=== PATIENT | female | born 1980 | race Two or more races ===

== ENCOUNTER 2024-07-24 19:26 | Inpatient (IN) | payer MEDICAID, SELFPAY ==
[2024-07-24] VITALS (48 sets, daily range): BP systolic 60–148; BP diastolic 49–107; PULSE 78–208; RESP 13–25; TEMP 36.2–36.4; O2SAT 94–100; BMI 28.3
--- NOTE | 2024-07-24 19:31 | EKG_ITS ---
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
--- NOTE | 2024-07-24 19:39 | XR_ITS ---
Examination: AP chest single view TECHNIQUE: AP portable upright chest single view Date and time: July 24, 2024 2030 hours INDICATIONS: Chest pain and shortness of breath beginning today. FINDINGS: Normal heart size. Lungs are clear. Osseous structures are intact. IMPRESSION: No active disease.
--- NOTE | 2024-07-24 19:41 | EDNOTE_ITS ---
ED Arrhythmia Palp. RME/HPI General Chief Complaint: Chest Pain Stated Complaint: CHEST PAIN X20 MINUTES, HR 198 AT HOME Time Seen by Provider: 07/24/24 20:08 Arrival date/time: 07/24/24 19:26 RME / HPI RME / HPI narrative: This section includes all my notes and documentations, including HPI, PE, and ED course. Rasta Duncan MD HPI: 43 y/o female with Hx of Hypercholesterolemia presents to ED c/o heart palpitati ons x approximately 40 minutes prior to arrival. She also reports chest tightness and dizziness. No other complaints. ROS: All negative except as documented in HPI. Physical Exam: General: Alert and oriented. Eyes: Conjunctivae and lids clear. EOMI. PERRL. ENT: No nasal congestion. Neck: Supple. No carotid bruit. No JVD. Heart: Tachycardia noted (~200 bpm). Lungs: No respiratory distress. Good air movement. No rhonchi, wheezing, rales. Legs: No clubbing, cyanosis, edema. Skin: Warm and dry. Neuro: Alert and oriented X 3. Cranial Nerves II-XII grossly intact. No stephane pheral motor deficits. I reviewed all diagnostic test results. My interpretation of the EKG is: SVT (208 bpm) with nonspecific ST-T changes. My interpretation of the chest x-ray is NAD. Blood tests and urine tests remarkable for WBC 16.3 and negative troponin/D- dimer/BNP. At this point, diagnoses include SVT. Treatment here included adenosine 6 mg followed by 12 mg and IV fluid. Significant improvement noted. I discussed the case with our Laminator Preforms and our hospitalist. About the presentation and exam and diagnostics and treatments here. And need of further care in the hospital. Made decision to admit the patient for further care. Rasta Duncan MD Related Data Previous Rx's ?Medication ?Instructions ?Recorded ibuprofen 600 mg tablet 600 mg PO Q6HR PRN PAIN #20 tabs 02/12/15 Allergies Allergy/AdvReac Type Severity Reaction Status Date / Time No Known Allergies Allergy Verified 07/24/24 19:28 Review of Systems Review of Systems Systems Reviewed: All systems reviewed, normal except as documented Past Medical History Past Medical History CARDIAC: Positive Hypercholesterolemia Social History SMOKING STATUS: Never smoker ED Exam Narrative Physical exam: Refer to HPI Course Course Course Narrative: CXR is ordered for determining the etiology of shortness of breath. Quality Measures none Orders Category Date Time Status EKG (ED ONLY) *Do not use* NOW Care 07/24/24 19:31 Completed Saline [Insert IV] NOW Care 07/24/24 19:39 Active EKG (ED Only) Stat Exams 07/24/24 19:31 Ordered XR chest 1V portable Stat Exams 07/24/24 19:39 Ordered BNP [B-Type Natriuretic Peptide] Stat Lab 07/24/24 19:39 Ordered Bilirubin,Direct Stat Lab 07/24/24 19:39 Ordered CBC Stat Lab 07/24/24 19:39 Ordered CMP [Comprehensive Metabolic Panel] Stat Lab 07/24/24 19:39 Ordered D-Dimer Stat Lab 07/24/24 19:39 Ordered Free T4 (Free Thyroxine) Stat Lab 07/24/24 19:39 Ordered HCG Qualitative,Urine Stat Lab 07/24/24 19:39 Ordered HCG,Qualitative Serum Stat Lab 07/24/24 19:39 Ordered Magnesium Stat Lab 07/24/24 19:39 Ordered TSH [Thyroid Stimulating Hormone] Stat Lab 07/24/24 19:39 Ordered Troponin I Stat Lab 07/24/24 19:39 Ordered UA, C/S IF [Urinalysis, C/S if Indicated] Stat Lab 07/24/24 19:39 Ordered Adenosine 6mg Inj [Adenocard Inj] Med 07/24/24 19:38 Discontinued 12 mg IVP X1 ONE Adenosine 6mg Inj [Adenocard Inj] Med 07/24/24 19:38 Discontinued 6 mg IVP X1 ONE Vital Signs Vital signs: Vital Signs Temperature 97.6 F 07/24/24 19:38 Pulse Rate 208 H 07/24/24 19:38 Respiratory Rate 22 H 07/24/24 19:38 Pulse Oximetry (%) 99 07/24/24 19:38 Oxygen Delivery Method Room Air 07/24/24 19:38 Arrhythmia/Palpitations MDM Narrative MDM Narrative:: Scribe Attestation: Kirsty Rojas am scribing for and in the presence of Dr. Duncan. Provider Notation: Although this document has been carefully reviewed, there may still be some phonetic and other typographical errors.? These errors are purely grammatical due to imperfections in the software program and should not be construed in any way to? compromise the substance of the patient's medical care during this visit. 43 y/o female with Hx of Hypercholesterolemia presents to ED c/o heart palpitations x approximately 40 minutes. No other complaints. Patient data External records reviewed:: [facility] previous records (No prior ED records available for review.) Clinical information provided by:: patient Social determinants that could affect healthcare access:: none Patient has the following chronic illnesses:: Hypercholesterolemia How is presenting disease/condition affected by chronic disease/condition?: exacerbated by Evaluation data The following diagnostics were reviewed and interpreted by me:: lab results, r adiology exam(s) and EKG tracing(s) (My interpretation of the EKG is: SVT (208 bpm) with nonspecific ST-T changes. Rasta Duncan MD) Lab and/or radiology exams considered but not ordered:: None Interpretation Summary: I reviewed all diagnostic test results. My interpretation of the EKG is: SVT (208 bpm) with nonspecific ST-T changes. My interpretation of the chest x-ray is NAD. Blood tests and urine tests remarkable for WBC 16.3 and negative troponin/D- dimer/BNP. Medications / Prescriptions Medications or Prescriptions considered but not ordered:: None Medication administrations:: Medication Administration History Discontinued Medications Adenosine (Adenosine Inj 3 Mg/Ml Vial) 6 mg IVP X1 ONE Stop: 07/24/24 19:39 Adenosine (Adenosine Inj 3 Mg/Ml Vial) 12 mg IVP X1 ONE Stop: 07/24/24 19:39 Consultations Consultation(s) initiated? (list below): Yes Consultation #1 (Physician, Specialty, Details): I discussed the case with our Laminator Preforms. About the presentation and exam and diagnostics and treatments here. And need of further care in the hospital. Will consult. Time: 22:08 Diagnosis Differential diagnosis arrhythmia/palpitations: palpitations, anxiety, sinus tachycardia, artial fibrillation, artial flutter, ventricular premature beats, supraventricular tachycardia, ventricular tachycardia and WPW Most likely diagnosis given after review of the tests above:: SVT Admission Indicated Admission indicated?: indicated Explain why admission is indicated or not indicated:: SVT Admission Request Was there a request for admission?: Yes Admission Attestation Admission request attestation: Discussed case with Hospitalist service regarding admission. Discussed patients ED course, exam findings, labs, and radiology results. The Hospitalist [agrees] to accept the patient for admission. Disposition Plan Disposition Plan: Admit Critical Care Time Critical Care Time Critical Care Time: Yes Total Critical Care Time (min.): 42 Attestation: Due to a high probability of clinically significant, life threatening deterioration, the patient required my highest level of preparedness to intervene emergently and I personally spent this critical care time directly and personally managing the patient. This critical care time included obtaining a history; examining the patient; ordering and review of studies; arranging urgent treatment with development of a management plan; evaluation of patient's response to treatment; frequent reassessment; and discussions with family and other providers. It was exclusive of separately billable procedures and treating other patients and teaching time. Rasta Duncan MD Discharge Plan Plan Patient Disposition: Admit Acute Care w/in Hospital Prescriptions/Referrals Prescriptions/Med Rec: No Action ibuprofen 600 MG tablet 600 mg PO Q6HR PRN (Reason: PAIN) Qty: 20 0RF Problem List Clinical Impression: SVT (supraventricular tachycardia) Patient/Caregiver Discharge Instructions Print Language: Citizen Of [place] Stand Alone Forms: Emilie Award Info., Patient Portal Info Letter
--- NOTE | 2024-07-24 19:45 | PC.NURSE ---
PT BIB TO ER WITH C/O SUDDEN ONSET OF PALPITATIONS AND DIZZINESS AND SOB 30 MIN PRIOR TO ARRIVAL. PER PT SHE HAD A COFFEE THIS MORNING FOLLOWED BY AND ENERGY DRINK ON AN EMPTY STOMACH. PT STATES SHE HAS HX OF TACHYCARDIA AND IS ON PROPANOLOL, AND STATES IS COMPLIANT WITH MEDICATIONS. PT PLACED ON GURNEY AND ZOLL PAD PLACED, CONSULTING SENIOR PRACTICE DIRECTOR PLACE, UNABLE TO OBTAIN BP AT THIS TIME. 18G STARTED TO LAC. AT BEDSIDE. PT EDUCATED ON PLAN OF CARE. PT A/OX 3 GCS 15.
[2024-07-24] MEDS: ADENOSINE INJ 3 MG/ML VIAL 6 MG IVP (19:48)
[2024-07-24] MEDS: ADENOSINE INJ 3 MG/ML VIAL 12 MG IVP (19:50)
[2024-07-24] MEDS: SODIUM CHLORIDE 0.9% 1000 ML 1,000 ML 999 ML IV (19:50)
[2024-07-24 20:20] LABS: Basophils # (Auto) 0.1 Thou/mm3 (0.0-0.2); Basophils % (Auto) 0 % (0-2.5); Eosinophils # (Auto) 0.2 Thou/mm3 (0.0-0.5); Eosinophils % (Auto) 1 % (0-10); Hematocrit 40.2 % (36.0-46.0); Hemoglobin 13.7 g/dL (12.0-16.0); Immature Granulocytes % (Auto) 0 % (0-0); Immature Granulocytes Auto 0.04 Thou/mm3 (0.00-0.00); Lymphocytes # (Auto) 6.4 Thou/mm3 (1.0-4.8); Lymphocytes % (Auto) 39 % (10-50); Mean Corpuscular HGB Conc 34.1 g/dl (31.0-37.0); Mean Corpuscular Hemoglobin 31.3 pg (25.0-35.0); Mean Corpuscular Volume 92 fL (80-100); Monocytes # (Auto) 1.1 Thou/mm3 (0.0-0.8); Monocytes % (Auto) 7 % (0-12); Neutrophils # (Auto) 8.5 Thou/mm3 (1.8-7.7); Neutrophils % (Auto) 52 % (37-80); Nucleated Red Blood Cell % 0 /100 WBC (0); Platelet Count 412 Thou/mm3 (140-440); RDW Standard Deviation 41.4 fL (36.4-46.3); Red Blood Count 4.38 Miln/mm3 (4.00-5.20); White Blood Count 16.3 Thou/mm3 (3.6-11.0)
[2024-07-24 20:48] LABS: Alanine Aminotransferase 16 U/L (10-49); Albumin, Serum 4.5 gm/dL (3.5-5.0); Albumin/Globulin Ratio 1.6 (1.2-2.2); Alkaline Phosphatase 78 U/L (46-116); Anion Gap 13 (7-16); Aspartate Amino Transferase 24 U/L (0-34); BUN/Creatinine Ratio 8 Ratio (12-20); Bilirubin,Direct 0.1 mg/dL (0.0-0.3); Bilirubin,Total 0.4 mg/dL (0.3-1.2); Blood Urea Nitrogen 11 mg/dL (9-23); Calcium 8.8 mg/dL (8.3-10.6); Calcium (Corrected) 8.8 mg/dL (8.5-10.1); Carbon Dioxide 22.7 mMol/L (20.0-31.0); Chloride 105 mMol/L (98-107); Creatinine (Component) 1.4 mg/dL (0.6-1.3); Estimated Creatinine Clearance 47.1 mL/min (>60); Free T4 (Free Thyroxine) 1.51 ng/dL (0.89-1.76); Globulin 2.8 gm/dL (2.3-3.5); Glucose 153 mg/dL (74-106); Magnesium 2.1 mg/dL (1.6-2.6); Osmolality,Calculated 283 (275-295); Potassium 4.1 mMol/L (3.4-5.1); Sodium 141 mMol/L (136-145); Thyroid Stimulating Hormone 4.29 uIU/mL (0.55-4.78); Total Protein 7.3 gm/dL (5.7-8.2); Troponin I < 0.002 ng/mL (0.0-0.045); eGFR 48 See Note
[2024-07-24 20:57] LABS: D-Dimer < 250 ng/mL (<600)
[2024-07-24 21:32] LABS: B-Type Natriuretic Peptide 36 pg/mL (0-100)
[2024-07-24 21:37] LABS: HCG,Qualitative Serum Negative
[2024-07-24 22:24] LABS: Collection Type, Urine Clean Catch
[2024-07-24 22:31] LABS: HCG Qualitative,Urine Negative
[2024-07-24 22:46] LABS: Bacteria,Urine Rare; Bilirubin,Urine Negative (Negative); Blood,Urine Trace (Negative); Clarity,Urine Clear (Clear/Hazy); Color,Urine Lt-Yellow (Lt Yel-Yel); Culture Indicated,Urine Not Indicated; Glucose, Urine Negative (Negative); Ketones,Urine 1+ (Negative); Leukocyte Esterase,Urine Negative (Negative); Nitrite,Urine Negative (Negative); PH,Urine 6.5 (5.0-7.0); Protein,Urine Negative (Neg - Trace); RBC,Urine 5 /hpf (0-3); Specific Gravity,Urine 1.014 (1.001-1.035); Squamous Epithelial Cell,Urine 3 /hpf (0-5); Urobilinogen,Urine Negative mg/dL (0.0-1.0); WBC,Urine 3 /hpf (0-5)
--- NOTE | 2024-07-24 23:02 | ESHP_ITS ---
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 The patient described a sudden onset of chest pressure, shortness of breath, and a sensation that her heart was racing. She called her , who brought her to the ED for further evaluation. The patient reports a history of anxiety and recent lifestyle factors that may have contributed to her symptoms, including excessive caffeine intake, consumption of energy drinks purchased in [place], poor sleep (only 3?4 hours per night), and elevated stress levels at work. She also reports a known history of tachycardia, for which she has previously been prescribed propranolol by her primary care physician. ED Course: Upon presentation, the patient was found to be hemodynamically unstable with a blood pressure of 60/50 and a heart rate of 208 . EKG was consistent with SVT. Two rounds of adenosine were administered, resulting in successful conversion to normal sinus rhythm. Following conversion, her blood pressure normalized to 128/89, and her symptoms improved significantly. Cardiology was consulted, and the patient was admitted for further inpatient cardiac monitoring and workup. Past medical history as above Past surgical history none Allergies NKDA Medication propranolol and valsartan Social history, denies smoking, drinking, recreational drug use, lives with her Review of Systems Review of Systems Systems Reviewed: All systems reviewed, normal except as documented Exam Vital Signs Temp Pulse Resp BP Pulse Ox O2 Del Method 97.6 F 200 H 19 98/49 L 98 Room Air 07/24/24 19:38 07/24/24 19:50 07/24/24 19:50 07/24/24 19:50 07/24/24 19:50 07/24/24 19:50 Narrative Exam GENERAL: no acute distress, AAO x3, well nourished. HEENT: Head AT/ NC. Mucous membranes moist. PERRL. NECK: Supple, no lymphadenopathy, no carotid bruits. CARDIOVASCULAR: RRR. Normal S1/S2, No m/r/g. No pitting edema of bilateral LEs. RESPIRATORY: CTAB. No wheezing, rhonchi, crackles. GASTROINTESTINAL: Abdomen soft, non tender no palpable masses. Bowel sounds present in all 4 quadrants. MUSCULOSKELETAL:? No cyanosis or edema, no visible joint swelling. NEUROLOGICAL: CN II-XII grossly intact. No focal deficits. Sensation intact, symmetric. PSYCHIATRIC: Awake and alert, not agitated, normal mood and affect. INTEGUMENTARY: No obvious rashes, no jaundice, normal turgor. Results: Labs 07/24/24 19:56 07/24/24 19:56 Labs: Short CBC 07/24/24 Range/Units 19:56 WBC 16.3 H (3.6-11.0) Thou/mm3 Hgb 13.7 (12.0-16.0) g/dL Hct 40.2 (36.0-46.0) % Plt Count 412 (140-440) Thou/mm3 BMP 07/24/24 19:56 Sodium 141 Potassium 4.1 Chloride 105 Carbon Dioxide 22.7 BUN 11 Creatinine 1.4 H Glucose 153 H Calcium 8.8 Cardiac Enzymes 07/24/24 Range/Units 19:56 Troponin I < 0.002 (0.0-0.045) ng/mL Liver Function 07/24/24 Range/Units 19:56 Total Bilirubin 0.4 (0.3-1.2) mg/dL Direct Bilirubin 0.1 (0.0-0.3) mg/dL AST 24 (0-34) U/L ALT 16 (10-49) U/L Alkaline Phosphatase 78 (46-116) U/L Albumin 4.5 (3.5-5.0) gm/dL Urine 07/24/24 Range/Units 21:34 Urine Color Lt-Yellow (Lt Yel-Yel) Urine Clarity Clear (Clear/Hazy) Urine pH 6.5 (5.0-7.0) Ur Specific [place] 1.014 (1.001-1.035) Urine Protein Negative (Neg - Trace) Urine Glucose (UA) Negative (Negative) Quality Measures Quality Measures none Medications Home Medications and Allergies Allergies Allergy/AdvReac Type Severity Reaction Status Date / Time No Known Allergies Allergy Verified 07/24/24 19:28 Visit Medications Discontinued Medications Adenosine (Adenosine Inj 3 Mg/Ml Vial) 6 mg IVP X1 ONE Stop: 07/24/24 19:39 Last Admin: 07/24/24 19:48 Dose: 6 mg Adenosine (Adenosine Inj 3 Mg/Ml Vial) 12 mg IVP X1 ONE Stop: 07/24/24 19:39 Last Admin: 07/24/24 19:50 Dose: 12 mg Sodium Chloride (Ns) 1,000 mls @ 999 mls/hr IV .Q1H1M ONE Stop: 07/24/24 20:52 Last Admin: 07/24/24 19:50 Dose: 999 mls/hr Assessment & Plan Plan 43-year-old female with past medical history of hypertension, tachycardia, anxiety was admitted for new onset SVT requiring inpatient cardiac monitoring and workup. #New onset SVT Patient presented with SVT, heart rate above 200, with initial hemodynamic instability Patient received 2 rounds of adenosine, successfully converted back to sinus rhythm - Admit to telemetry for further monitoring - Cardiology is on board for current management and to evaluate potential need for long-term rate control or electrophysiologic study - Rule out secondary contributors (e.g., stimulant use, anxiety, sleep deprivation) - Monitor electrolytes, keep magnesium above 2, potassium above 4 - Follow-up with echo to rule out any structural cardiac cause - Follow-up with TSH and free T4 #History of hypertension Home medication is valsartan Currently BP is well-controlled, - Monitor hemodynamics - If needed restart home meds Disposition: Telemetry DVT prophylaxis: Heparin GI prophylaxis: PPI Diet: N.p.o. Lines: PIV CODE STATUS:Full code Patient care was discussed with attending physician Dr. Coni Hinds MD PGY-2 Attending Provider Attestation/Addendum I have examined the patient, reviewed labs and imaging findings, discussed the case with the resident(s), and reviewed entered orders. I agree with the plan of care as outlined in this note, with these additional summaries/recommendations: After examination of the patient and review of the clinical data, I feel that this patient needs admission to the hospital for further treatment and evaluation. Patient is a 43-year-old female with a medical history of palpitations and dyslipidemia who presents to [facility] emergency department on 07/24/2024 with chief complaint of palpitations and chest tightness. Patient seen at bedside. She presented with supraventricular tachycardia with heart rates into the 200s. She received adenosine 6 mg IV push without improvement and then IV adenosine 12 mg x 1 with termination of SVT. I reviewed refueler after second dose of adenosine and appears to be sinus tachycardia. Patient endorses a history of palpitations and takes propranolol. She is not sure if she has ever been told if she has an arrhythmia. Patient reports she had 1 cup of coffee earlier and took some sort of energy B vitamin from [place] earlier in the day. Son and will bring the bottle to the hospital. Possible this supplement contributed to patient's development of SVT. TSH within normal limits. Denies any significant life stressors or previous episode of similar symptoms. Cardiology consulted and recommends admission to hospital. Troponin and thyroid studies within normal limits. We will monitor patient closely on telemetry. Order echocardiogram. Patient also noted to have minimal acute kidney injury with creatinine 1.4 and BUN 11. Patient started on IV fluids and repeat renal panel in AM. Avoid nephrotoxic agents and renally dose medications. Awaiting home medication reconciliation to confirm propranolol dose. Leukocytosis present and most likely reactive and no evidence of infection at this time. Patient and updated on the plan and in agreement. All questions answered to satisfaction. Please see residents note for additional details and management. Dr. Coni MD
--- NOTE | 2024-07-24 23:02 | ECHO_ITS ---
Transthoracic Echo Report Ht (in): 62 Wt (lb): 155 Exam Location: Echo Lab Status: Preadmit Office Cashier: Sarita Gama Indications: Procedure Performed: BP: 127 / 89 HR: 85 Technical Quality: Technically difficult study MEASUREMENTS (Male / Female) Normal Values 2D ECHO LV Diastolic Diameter PLAX 4.8 cm 4.2 - 5.9 / 3.9 - 5.3 cm LV Systolic Diameter PLAX 3.2 cm IVS Diastolic Thickness 0.8 cm 0.6 - 1.0 / 0.6 - 0.9 cm LVPW Diastolic Thickness 0.9 cm 0.6 - 1.0 / 0.6 - 0.9 cm LV Relative Wall Thickness 0.4 LVOT Diameter 2.0 cm LA Volume Index 34.3 cm?/m? 16 - 28 cm?/m? M-MODE Aortic Root Diameter MM 3.1 cm LA Systolic Diameter MM 3.3 cm LA Ao Ratio MM 1.1 AV Cusp Separation MM 2.0 cm DOPPLER AV Peak Velocity 213.0 cm/s AV Peak Gradient 18.1 mmHg AV Mean Gradient 9.0 mmHg AV Velocity Time Integral 43.4 cm AI Peak Velocity 404.0 cm/s AI Peak Gradient 65.3 mmHg AI Pressure Half Time 738.0 ms LVOT Peak Velocity 126.0 cm/s LVOT Peak Gradient 6.4 mmHg LVOT Velocity Time Integral 27.2 cm LVOT Cardiac Index 4091.4 cm?/min?m? AV Area Cont Eq vti 2.0 cm? AV Area Cont Eq pk 1.9 cm? MV Area PHT 3.8 cm? MR Peak Velocity 495.0 cm/s MR Peak Gradient 98.0 mmHg Mitral E Point Velocity 54.3 cm/s Mitral A Point Velocity 60.6 cm/s Mitral E to A Ratio 0.9 LV E' Lateral Velocity 11.3 cm/s Mitral E to LV E' Lateral Ratio 4.8 LV E' Septal Velocity 7.6 cm/s Mitral E to LV E' Septal Ratio 7.1 TR Peak Velocity 229.5 cm/s TR Peak Gradient 21.1 mmHg PV Peak Velocity 96.4 cm/s PV Peak Gradient 3.7 mmHg FINDINGS Left Ventricle Normal left ventricular size, wall thickness, systolic function with no obvious regional wall motion abnormalities.there is grade I diastolic dysfunction of the left ventricle (impaired relaxation pattern). The ejection fraction is visually estimated at 60-65 %. Right Ventricle The right ventricle is normal in size and systolic function. Left Atrium The left atrium is normal by two-dimensional, color flow and Doppler imaging with no structural abnormalities, no thrombus formation present. Right Atrium The right atrium is normal by two-dimensional imaging, color flow and Doppler imaging with no structural abnormalities, no thrombus formation present. Atrial Septum The interatrial septum appears normal with no evidence of a shunt. Aorta The aorta is normal by two-dimensional, color flow and Doppler interrogation. Mitral Valve The mitral valve is normal by two-dimensional, color flow and Doppler interrogation. Mild mitral regurgitation. Aortic Valve The aortic valve is trileaflet and normal by two-dimensional, color flow and Doppler interrogation. [id number] aortic valve regurgitation. Tricuspid Valve The tricuspid valve is normal by two-dimensional, color flow and Doppler interrogation. There is mild tricuspid valve regurgitation. Pulmonic Valve The pulmonic valve is not well visualized. There is no significant pulmonic valve regurgitation. Vessels The pulmonary artery appears normal. The inferior vena cava pulmonary and hepatic veins appear normal. Pericardium The pericardium is normal by two-dimensional imaging. There is no significant pericardial effusion. CONCLUSIONS Indication: SVT Normal LV size and wall thickness. There is grade I diastolic dysfunction. Estimated at 60-65 %. The RV is normal in size and systolic function. Mild MR and TR. Mild to moderate AI. Cannot rule out bicuspid aortic valve. Will need a YESENIA eventually to confirm biscuspid vs tricuspid aortic valve. Elmo Ca (Electronically Signed) Final Date: 26 July 2024 13:42
[2024-07-24 23:32] LABS: Amphetamine/Methamp Scrn,U Negative (Negative); Barbiturate Screen,Urine Negative (Negative); Benzodiazepines Screen,Urine Negative (Negative); Benzoylecgonine Screen, Ur Negative (Negative); Fentanyl Screen,Urine Negative (Negative); Opiate Screen,Urine Negative (Negative); THC Screen,Urine Negative (Negative)
[2024-07-24] MEDS: RINGERS LACTATED 1000 ML 1,000 ML 75 ML IV (23:33)
[2024-07-25] VITALS (63 sets, daily range): BP systolic 106–154; BP diastolic 72–110; PULSE 76–102; RESP 13–98; TEMP 36.1–37.2; O2SAT 93–99
[2024-07-25 06:55] LABS: Basophils % (Auto) 0 % (0-2.5); Eosinophils # (Auto) 0.1 Thou/mm3 (0.0-0.5); Eosinophils % (Auto) 1 % (0-10); Hematocrit 36.4 % (36.0-46.0); Hemoglobin 12.4 g/dL (12.0-16.0); Immature Granulocytes % (Auto) 0 % (0-0); Immature Granulocytes Auto 0.03 Thou/mm3 (0.00-0.00); Lymphocytes # (Auto) 3.5 Thou/mm3 (1.0-4.8); Lymphocytes % (Auto) 34 % (10-50); Mean Corpuscular HGB Conc 34.1 g/dl (31.0-37.0); Mean Corpuscular Hemoglobin 31.2 pg (25.0-35.0); Mean Corpuscular Volume 92 fL (80-100); Monocytes # (Auto) 0.6 Thou/mm3 (0.0-0.8); Monocytes % (Auto) 6 % (0-12); Neutrophils # (Auto) 6.2 Thou/mm3 (1.8-7.7); Neutrophils % (Auto) 59 % (37-80); Nucleated Red Blood Cell % 0 /100 WBC (0); Platelet Count 277 Thou/mm3 (140-440); RDW Standard Deviation 41.2 fL (36.4-46.3); Red Blood Count 3.97 Miln/mm3 (4.00-5.20); White Blood Count 10.5 Thou/mm3 (3.6-11.0)
--- NOTE | 2024-07-25 07:23 | PC.NURSE ---
Received report from Elisa MOSES and assumed care of patient. Patient resting in bed with no complaints at this time and daughter at bedside. Updated patient's active home medication list.
[2024-07-25 07:32] LABS: Alanine Aminotransferase 14 U/L (10-49); Albumin, Serum 3.9 gm/dL (3.5-5.0); Albumin/Globulin Ratio 1.6 (1.2-2.2); Alkaline Phosphatase 65 U/L (46-116); Anion Gap 9 (7-16); Aspartate Amino Transferase 20 U/L (0-34); BUN/Creatinine Ratio 17 Ratio (12-20); Bilirubin,Total 0.5 mg/dL (0.3-1.2); Blood Urea Nitrogen 10 mg/dL (9-23); Calcium 8.2 mg/dL (8.3-10.6); Calcium (Corrected) 8.3 mg/dL (8.5-10.1); Carbon Dioxide 21.9 mMol/L (20.0-31.0); Cardiac Risk Estimate 2.1 RATIO (3.7-5.6); Chloride 111 mMol/L (98-107); Cholesterol 137 mg/dL (132-200); Creatinine (Component) 0.6 mg/dL (0.6-1.3); Estimated Creatinine Clearance 109.9 mL/min (>60); Free T4 (Free Thyroxine) 1.42 ng/dL (0.89-1.76); Globulin 2.5 gm/dL (2.3-3.5); Glucose 94 mg/dL (74-106); HDL Cholesterol 65 mg/dL (40-60); LDL Cholesterol,Calculated 55 mg/dL (0-130); Osmolality,Calculated 282 (275-295); Potassium 3.8 mMol/L (3.4-5.1); Sodium 142 mMol/L (136-145); Thyroid Stimulating Hormone 1.33 uIU/mL (0.55-4.78); Total Protein 6.4 gm/dL (5.7-8.2); Triglycerides 84 mg/dL (30-150); eGFR > 60 See Note
[2024-07-25] MEDS: HEPARIN SOD INJ 5000 UNIT/ML VIAL SC ×3 (07:57→21:12)
--- NOTE | 2024-07-25 08:21 | PC.NURSE ---
Report given to Xiomara MOSES at [facility].
--- NOTE | 2024-07-25 11:00 | PC.NURSE ---
Called team B hospitalist to clarify purpose of NPO order and if NPO meds ok or Strict NPO. No answer, no call-back.
[2024-07-25] MEDS: METOPROLOL TARTRATE 25 MG TABLET 12.5 MG PO ×2 (14:01→20:42)
[2024-07-25] MEDS: RINGERS LACTATED 1000 ML 1,000 ML 75 ML IV (14:02)
--- NOTE | 2024-07-25 14:33 | ESCONSULT_ITS ---
HPI Data of Consult Requesting Physician: Js Newberry MD Admitting Provider: Js Newberry MD Attending Provider: Js Newberry MD Primary Care Provider: Meek Perez MD Consult Narrative Reason for consult: SVT History of present illness: Patient is 43 years old female with past medical history of hypertension presented to the ED due to chest pain, shortness of breath and palpitations. She reports she started having palpitations intermittently on and off approximately 3 years ago and her PCP started her on propranolol for symptomatic treatment. The palpitations happens once every month approximately and is not associated with chest pain or pressure or shortness of breath. 2 days ago patient woke up at night due to palpitations chest pain and shortness of breath. She reported her heart was racing but resolved very quick and she fell back asleep. Yesterday she was working at her kitchen when she suddenly developed palpitations associated with chest pain and shortness of breath. She became very weak, they checked her pulse at home and it was in 190s and EMS was called. Family reports that prior to the event patient was working outside and exerting herself a lot. On arrival to the ED her blood pressure 60/50, pulse 208, respirations 22, temperature 97.6 ?F, oxygen saturation 99% on room air. Labs did not show any significant abnormalities. Urinalysis was unremarkable. U tox was negative. Chest x-ray was unremarkable. EKG showed SVT. Patient was given adenosine 6 mg followed by adenosine 12 mg and was converted to sinus rhythm. After bolus of IVF her BP improved significantly. She was admitted for further management and evaluation. Cardiology was consulted. Patient was seen and examined at bedside. She reports feeling completely fine and denies any chest pain or pressure or shortness of breath. She does not have any palpitations now. Will perform full workup including cardiac echo. Start her on metoprolol tartrate 12.5 mg BID. If patient is being discharged today she will need to follow up with PCP within 2 weeks and cardiology by the referral from her PCP. cc:: cc: Js Newberry MD Review of Systems Review of Systems Systems Reviewed: All systems reviewed, normal except as documented Exam Vital Signs Temp Pulse Resp BP Pulse Ox O2 Del Method 97.0 F 81 16 124/77 98 Room Air 07/25/24 12:00 07/25/24 14:01 07/25/24 12:00 07/25/24 14:01 07/25/24 12:00 07/25/24 12:00 Narrative Exam Gen: Well-developed and well-nourished. HEENT: NCAT, PERRLA, EOMI, MMM, anicteric conjunctivae. CVS: normal S1 and S2. RRR. No M/R/G. Resp: CTA B/L. No rhonchi, rales, crackles or wheezing. Abd: soft, non-tender, non-distended. BS+ in all 4 quadrants. MSK: Good ROM in BUE & BLE. No edema or rash. Neuro: CN II-XII grossly intact. Strength 5/5 in BUE & BLE. Alert and oriented x3. Psych: appropriate mood and affect. Results Labs 07/25/24 06:41 07/25/24 06:41 Labs: Short CBC 07/24/24 07/25/24 Range/Units 19:56 06:41 WBC 16.3 H 10.5 D (3.6-11.0) Thou/mm3 Hgb 13.7 12.4 (12.0-16.0) g/dL Hct 40.2 36.4 (36.0-46.0) % Plt Count 412 277 D (140-440) Thou/mm3 BMP 07/24/24 07/25/24 19:56 06:41 Sodium 141 142 Potassium 4.1 3.8 Chloride 105 111 H Carbon Dioxide 22.7 21.9 BUN 11 10 Creatinine 1.4 H 0.6 D Glucose 153 H 94 D Calcium 8.8 8.2 L Cardiac Enzymes 07/24/24 Range/Units 19:56 Troponin I < 0.002 (0.0-0.045) ng/mL Liver Function 07/24/24 07/25/24 Range/Units 19:56 06:41 Total Bilirubin 0.4 0.5 (0.3-1.2) mg/dL Direct Bilirubin 0.1 (0.0-0.3) mg/dL AST 24 20 (0-34) U/L ALT 16 14 (10-49) U/L Alkaline Phosphatase 78 65 (46-116) U/L Albumin 4.5 3.9 D (3.5-5.0) gm/dL Urine 07/24/24 Range/Units 21:34 Urine Color Lt-Yellow (Lt Yel-Yel) Urine Clarity Clear (Clear/Hazy) Urine pH 6.5 (5.0-7.0) Ur Specific [place] 1.014 (1.001-1.035) Urine Protein Negative (Neg - Trace) Urine Glucose (UA) Negative (Negative) Quality Measures Quality Measures none Medications Home Medications and Allergies Home Medications ?Medication ?Instructions ?Recorded ?Confirmed ?Type losartan 25 mg tablet (Cozaar) 25 mg PO QPM blood pres sure 07/25/24 07/25/24 History propranolol 20 mg tablet 20 mg PO QMORNING 07/25/24 0 07/25/24 History Allergies Allergy/AdvReac Type Severity Reaction Status Date / Time No Known Allergies Allergy Verified 07/24/24 19:28 Visit Medications Acetaminophen (Acetaminophen 325 Mg Tablet) 650 mg PO Q6H PRN PRN Reason: PAIN OR FEVER > 101 Stop: 08/23/24 23:01 Heparin Sodium (Porcine) (Heparin Sod Inj 5000 Unit/Ml Vial) 5,000 unit SC Q8HR [facility] Stop: 08/08/24 05:59 Last Admin: 07/25/24 14:01 Dose: 5,000 unit Lactated Ringer's (Lactated Ringers) 1,000 mls @ 75 mls/hr IV .[id number] [facility] Stop: 07/26/24 23:14 Last Admin: 07/25/24 14:02 Dose: 75 mls/hr Metoprolol Tartrate (Metoprolol Tartrate 25 Mg Tablet) 12.5 mg PO BID [facility] Stop: 08/24/24 10:14 Last Admin: 07/25/24 14:01 Dose: 12.5 mg Ondansetron HCl (Ondansetron Inj 2 Mg/Ml Inj 2 Ml) 4 mg IVP Q6H PRN; Protocol PRN Reason: NAUSEA OR VOMITING Stop: 08/23/24 23:01 Pantoprazole Sodium (Pantoprazole 40 Mg Tablet) 40 mg PO QDAY [facility] Stop: 08/24/24 08:59 Last Admin: 07/25/24 14:00 Dose: Not Given Discontinued Medications Adenosine (Adenosine Inj 3 Mg/Ml Vial) 6 mg IVP X1 ONE Stop: 07/24/24 19:39 Last Admin: 07/24/24 19:48 Dose: 6 mg Adenosine (Adenosine Inj 3 Mg/Ml Vial) 12 mg IVP X1 ONE Stop: 07/24/24 19:39 Last Admin: 07/24/24 19:50 Dose: 12 mg Sodium Chloride (Ns) 1,000 mls @ 999 mls/hr IV .Q1H1M ONE Stop: 07/24/24 20:52 Last Infusion: 07/24/24 20:55 Dose: Infused Assessment & Plan Plan Patient is 43 years old female with past medical history of hypertension presented to the ED due to chest pain, shortness of breath and palpitations, on arrival to the ED her blood pressure 60/50, pulse 208, EKG showed SVT. Patient was given adenosine 6 mg followed by adenosine 12 mg and was converted to sinus rhythm. She was admitted for further management and evaluation. Cardiology was consulted. #Episode of SVT. #Hx of hypertension. - patient has history of intermittent palpitations and was prescribed propranolol. - she was working outside and likely was dehydrated which precipitated the event. Plan: - echo is ordered. - monitor electrolytes. - start on metoprolol tartrate 12.5 mg BID. - continue home losartan. - if patient will be discharged today she will need to follow up with PCP and obtain referral to cardiology for follow up. Management of other problems as per primary team. Plan of care discussed with attending Dr. Ca. Caleb Montero MD, PGY 2. Disclaimer: This note was dictated by speech recognition. Minor errors in police shift commander may be present due to voice recognition software. Attending Provider Attestation/Addendum I have personally seen and examined the patient separately on the above date of service and discussed the plan of care with the resident. I reviewed the resident Dr. Ellis consultation progress note and agree with the resident findings and plan in the note above and have also edited the documentation to reflect my findings and plan. A 43 years old female with past medical history of hypertension, Anxiety, palpiations presented to the ED due to chest pain, shortness of breath and palpitations. As per patient she started having palpitations intermittently on and off approximately 3 years ago and her PCP started her on propranolol for symptomatic treatment. The palpitations happens once every month approximately and is not associated with chest pain or pressure or shortness of breath. 2 days ago patient woke up at night due to palpitations chest pain and shortness of breath. She reported her heart was racing but resolved very quick and she fell back asleep. Yesterday she was working at her kitchen when she suddenly developed palpitations associated with chest pain and shortness of breath. She became very weak, they checked her pulse at home and it was in 190s and EMS was called. Family reports that prior to the event patient was working outside and exerting herself a lot. On arrival to the ED her blood pressure 60/50, pulse 208, respirations 22, temperature 97.6 ?F, oxygen saturation 99% on room air. Labs did not show any significant abnormalities. Urinalysis was unremarkable. U tox was negative. Chest x-ray was unremarkable. EKG showed SVT. Patient was given adenosine 6 mg followed by adenosine 12 mg and was converted to sinus rhythm. After the cardioversion and bolus of IVF her BP improved significantly. Assessment and plan: 1. SVT 2. Essential hypertension 3. Mild ORLY 4. Anxiety 5. Patient presented with SVT which she actually did respond to adenosine. Patient and later on did endorse to on and off palpitations for the last 3 years but she never had any kind of palpitations or any kind of tachycardia even when she was younger in her teens or in the 20s. This symptoms only started 3 years ago and she gets intermittent episodes of the same on and off. Patient presents at this time with palpitation or chest pain or shortness of breath as noted in the HPI heart rate was elevated around 180 bpm which required IV adenosine for conversion. EKG reviewed and showed normal sinus rhythm and no evidence of any delta waves or any WPW syndrome. Patient appears to be having SVT secondary to possible dehydration as patient was hypotensive and also patient was working the fluids and did not drink enough water over the last couple of days. Had mild ORLY on presentation. Recommend patient to keep yourself adequately hydrated and continue to replace lites when she is dehydrated or exhausted in the face. Patient recommended to start on metoprolol tartrate 12.5 mg twice daily for now and also stop the propranolol completely. Metoprolol started to fail heart rate rhythm changed to metoprolol XL. Can uptitrate the metoprolol XL to 50 mg once daily and actually decrease the losartan to 12.5 mg once daily Echocardiogram ordered to rule out any kind of structural heart disease causing the SVT. Am potassium greater than 4 magnesium greater than 2.0 at all times. Patient will need an outpatient long-term Holter monitoring to evaluate atrial SVT further. Patient might need eventually need an EP study if Holter is unremarkable and patient still continues to have symptoms on metoprolol. Unfortunately patient does not see doctors and recommend to continue to follow- up with the primary care doctor as well as the bush regenerator closely given her presentation. For blood pressure can decrease the losartan to 12.5 mg once daily and start metoprolol XL 25 mg once daily and uptitrate to 50 mg once daily tomorrow. Mild ORLY improved with IV fluids. Management of rest of the medical conditions as per primary team and other consultants. Thank you for the consult and allowing me to participate in the care of the patient. Cardiology will continue to follow. Elmo Ca M.D. Interventional Cardiology
--- NOTE | 2024-07-25 14:36 | PD.ADDPROG ---
Addendum Progress Note Addendum Date of report being addended: 07/25/24 Narrative: Attending's attestation: I reviewed labs, imaging, EKG, home medications and prior available records. Face to face evaluation was performed by me. I have personally examined the patient and discussed assessment and plan with the IM team. I reviewed the resident note and agree with the plan with exceptions as below. SVT Dehydration ORLY SVT is likely in setting of acute dehydration in the setting of working in high temperature weather, improved with IV hydration and IV adenosine Consulted cardiology: Recommended to start metoprolol 12.5 mg twice daily. Ordered echocardiogram. She does not have an insurance so she needs one before being able to follow-up with cardiology as outpatient Creatinine improved with IV hydration Continue to monitor kidney function
--- NOTE | 2024-07-25 15:45 | PD.RESPRO ---
Documentation for date of: 07/25/24 Subjective Subjective Interval history: Patient was seen and examined at bedside. Her vital signs within normal limits, patient did not experience any overnight arrhythmias. Her labs today were all within baseline, her potassium is 3.8, magnesium is 2, her TSH is 1.33 and free T4 is 142 test was negative. We spoke with the cardiology team they agreed on starting the patient on metoprolol 12.5 twice daily, and wait for the echo to evaluate and structural abnormalities. 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 Her serum creatinine on presentation was 1.4 and now it is 0.6 which supported the idea of her being dehydrated. Patient was started not to drink any caffeinated or energy drinks. 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 Objective Labs 07/26/24 05:47 07/26/24 05:47 Labs: Laboratory Results - last 24 hr 07/24/24 07/24/24 07/25/24 19:56 21:34 06:41 WBC 16.3 H 10.5 D RBC 4.38 3.97 L Hgb 13.7 12.4 Hct 40.2 36.4 MCV 92 92 MCH 31.3 31.2 MCHC 34.1 34.1 RDW Std Deviation 41.4 41.2 Plt Count 412 277 D Neut % (Auto) 52 59 Lymph % (Auto) 39 34 [place] % (Auto) 7 6 Eos % (Auto) 1 1 Baso % (Auto) 0 0 Neut # (Auto) 8.5 H 6.2 Lymph # (Auto) 6.4 H 3.5 [place] # (Auto) 1.1 H 0.6 Eos # (Auto) 0.2 0.1 Baso # (Auto) 0.1 0.0 Immature Gran # (Auto) 0.04 H 0.03 H Absolute Nucleated RBC 0.00 0.00 Immature Gran % 0 0 Nucleated RBC % 0 0 D-Dimer < 250 Sodium 141 142 Potassium 4.1 3.8 Chloride 105 111 H Carbon Dioxide 22.7 21.9 Anion Gap 13 9 BUN 11 10 Creatinine 1.4 H 0.6 D Estim Creat Clear Calc 47.1 L 109.9 eGFR 48 L > 60 BUN/Creatinine Ratio 8 L 17 Glucose 153 H 94 D Calculated Osmolality 283 282 Calcium 8.8 8.2 L Corrected Calcium 8.8 8.3 L Phosphorus 3.0 Magnesium 2.1 2.0 Total Bilirubin 0.4 0.5 Direct Bilirubin 0.1 AST 24 20 ALT 16 14 Alkaline Phosphatase 78 65 Troponin I < 0.002 B-Natriuretic Peptide 36 Total Protein 7.3 6.4 Albumin 4.5 3.9 D Globulin 2.8 2.5 Albumin/Globulin Ratio 1.6 1.6 Triglycerides 84 Cholesterol 137 LDL Cholesterol, Calc 55 HDL Cholesterol 65 H Cholesterol/HDL Ratio 2.1 L TSH 4.29 1.33 D Free T4 1.51 1.42 HCG, Qual Negative Ur Collection Type Clean Catch Urine Color Lt-Yellow Urine Clarity Clear Urine pH 6.5 Ur Specific [place] 1.014 Urine Protein Negative Urine Glucose (UA) Negative Urine Ketones 1+ A Urine Blood Trace Urine Nitrite Negative Urine Bilirubin Negative Urine Urobilinogen (Auto) Negative Ur Leukocyte Esterase Negative Urine RBC 5 H Urine WBC 3 Ur Squamous Epith Cells 3 Urine Bacteria Rare Ur Culture Indicated? Not Indicated Urine HCG, Qual Negative Urine Opiates Screen Negative Urine Fentanyl Screen Negative Ur Barbiturates Screen Negative U Amphetamin/Meth Scrn Negative U Benzodiazepines Scrn Negative U Cocaine Metab Screen Negative U Marijuana (THC) Screen Negative Quality Measures Quality Measures none Assessment & Plan Assessment Current Active Medications: Generic Name Dose Route Start Last Admin Trade Name Freq PRN Reason Stop Dose Admin Acetaminophen 650 mg 07/24/24 23:02 Acetaminophen 325 Mg Tablet PO 08/23/24 23:01 Q6H PRN PAIN OR FEVER > 101 Heparin Sodium (Porcine) 5,000 unit 07/25/24 06:00 07/25/24 14:01 Heparin Sod Inj 5000 Unit/Ml Vial SC 08/08/24 05:59 5,000 unit Q8HR [facility] Administration Lactated Ringer's 1,000 mls @ 75 mls/hr 07/24/24 23:15 07/25/24 14:02 Lactated Ringers IV 07/26/24 23:14 75 mls/hr .[id number] [facility] Administration Metoprolol Tartrate 12.5 mg 07/25/24 10:15 07/25/24 14:01 Metoprolol Tartrate 25 Mg Tablet PO 08/24/24 10:14 12.5 mg BID [facility] Administration Ondansetron HCl 4 mg 07/24/24 23:02 Ondansetron Inj 2 Mg/Ml Inj 2 Ml IVP 08/23/24 23:01 Q6H PRN NAUSEA OR VOMITING Protocol Pantoprazole Sodium 40 mg 07/25/24 09:00 07/25/24 14:00 Pantoprazole 40 Mg Tablet PO 08/24/24 08:59 Not Given QDAY [facility] Plan Summary: 43-year-old female with past medical history of hypertension, tachycardia, anxiety was admitted for new onset SVT requiring inpatient cardiac monitoring and workup. #New onset SVT Patient presented with SVT, heart rate above 200, with initial hemodynamic instability, her blood pressure was 60/40 in the ED. Patient received 2 rounds of adenosine, successfully converted back to sinus rhythm improved her blood pressure to normal levels. 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 Improved to 0.6 the next day after IV fluids., she drank multiple caffeinated during, energy drink that was brought from [place]. Serum potassium 3.8, magnesium 2, TSH 1.33, free T4 within normal limits. Cardiology team was consulted they recommended echocardiogram. Plan - Cardiology is on board for current management and to evaluate potential need for long-term rate control or electrophysiologic study - Rule out secondary contributors (e.g., dehydration, stimulant use, anxiety, sleep deprivation) - Monitor electrolytes, keep magnesium above 2, potassium above 4 - Follow-up with echo to rule out any structural cardiac cause #History of hypertension Home medication is valsartan which was held because of her ORLY which her serum creatinine was 1.4 on admission and patient was hypertensive on presentation. Currently BP is well-controlled, Plan - Monitor hemodynamics, resume home medication if clinically appropriate Disposition: Telemetry DVT prophylaxis: Heparin GI prophylaxis: PPI Diet: Cardiac diet Lines: PIV CODE STATUS:Full code - Patient's plan and care discussed with my attending, Dr. Nadira Ford MD Internal Medicine PGY-2 Attending Provider Attestation/Addendum I reviewed labs, imaging, EKG, home medications and prior available records. Face to face evaluation was performed by me. I have personally examined the patient and discussed assessment and plan with the IM team. I reviewed the resident note and agree with the plan with exceptions as below. SVT Dehydration ORLY SVT is likely in setting of acute dehydration in the setting of working in high temperature weather, improved with IV hydration and IV adenosine Consulted cardiology: Recommended to start metoprolol 12.5 mg twice daily. Ordered echocardiogram. She does not have an insurance so she needs one before being able to follow-up with cardiology as outpatient Creatinine improved with IV hydration Continue to monitor kidney function
[2024-07-26] VITALS (8 sets, daily range): BP systolic 113–127; BP diastolic 75–89; PULSE 74–92; RESP 15–98; TEMP 36.5–36.9; O2SAT 96–99; BMI 28.3
[2024-07-26] MEDS: RINGERS LACTATED 1000 ML 1,000 ML 75 ML IV (02:42)
[2024-07-26 06:33] LABS: Basophils % (Auto) 0 % (0-2.5); Eosinophils # (Auto) 0.2 Thou/mm3 (0.0-0.5); Eosinophils % (Auto) 2 % (0-10); Hematocrit 34.6 % (36.0-46.0); Hemoglobin 12.1 g/dL (12.0-16.0); Immature Granulocytes % (Auto) 0 % (0-0); Immature Granulocytes Auto 0.01 Thou/mm3 (0.00-0.00); Lymphocytes # (Auto) 3.6 Thou/mm3 (1.0-4.8); Lymphocytes % (Auto) 43 % (10-50); Mean Corpuscular Hemoglobin 31.6 pg (25.0-35.0); Mean Corpuscular Volume 90 fL (80-100); Monocytes # (Auto) 0.6 Thou/mm3 (0.0-0.8); Monocytes % (Auto) 7 % (0-12); Neutrophils # (Auto) 3.9 Thou/mm3 (1.8-7.7); Neutrophils % (Auto) 47 % (37-80); Nucleated Red Blood Cell % 0 /100 WBC (0); Platelet Count 277 Thou/mm3 (140-440); RDW Standard Deviation 40.4 fL (36.4-46.3); Red Blood Count 3.83 Miln/mm3 (4.00-5.20); White Blood Count 8.3 Thou/mm3 (3.6-11.0)
[2024-07-26 07:06] LABS: Alanine Aminotransferase 14 U/L (10-49); Albumin, Serum 3.7 gm/dL (3.5-5.0); Albumin/Globulin Ratio 1.5 (1.2-2.2); Alkaline Phosphatase 60 U/L (46-116); Anion Gap 12 (7-16); Aspartate Amino Transferase 19 U/L (0-34); BUN/Creatinine Ratio 18 Ratio (12-20); Bilirubin,Total 0.4 mg/dL (0.3-1.2); Blood Urea Nitrogen 11 mg/dL (9-23); Calcium 8.7 mg/dL (8.3-10.6); Calcium (Corrected) 8.9 mg/dL (8.5-10.1); Carbon Dioxide 22.9 mMol/L (20.0-31.0); Chloride 109 mMol/L (98-107); Creatinine (Component) 0.6 mg/dL (0.6-1.3); Estimated Creatinine Clearance 109.9 mL/min (>60); Globulin 2.5 gm/dL (2.3-3.5); Glucose 93 mg/dL (74-106); Magnesium 1.9 mg/dL (1.6-2.6); Osmolality,Calculated 286 (275-295); Phosphorous 3.1 mg/dL (2.4-5.1); Potassium 4.4 mMol/L (3.4-5.1); Sodium 144 mMol/L (136-145); Total Protein 6.2 gm/dL (5.7-8.2); eGFR > 60 See Note
[2024-07-26] MEDS: METOPROLOL TARTRATE 25 MG TABLET 12.5 MG PO (08:08)
[2024-07-26] MEDS: PANTOPRAZOLE 40 MG TABLET PO (08:08)
--- NOTE | 2024-07-26 10:20 | PC.SS ---
ASW met with Team B and per their report, they are waiting on a pending ECHO. Pt is staying and there is no d/c date at this time.
--- NOTE | 2024-07-26 10:21 | PC.SS ---
ASW met with Team B and per their report, labs are pending. Possible LTAC. Pt is on IV antibiotics. Possible d/c tomorrow.
[2024-07-26] MEDS: Magnesium Sulfate 2 GM Ivpb 2 GM/50 ML BAG IV (10:32)
--- NOTE | 2024-07-26 10:38 | ESPR_ITS ---
Documentation for date of: 07/26/24 Subjective Subjective Interval history: Patient is a 43-year-old female with a past medical history of hypertension, home medication losartan 25 mg p.o., and past medical history of anxiety per PCP-never started on SSRIs but was given propranolol. Patient was admitted on 07/24/2024 secondary to new onset of SVT. 07/26/2024: Patient examined at bedside this morning. Patient denied any chest pain or palpitations. Patient denied any dizziness or headaches. Patient denied any cardiac history. Past medical history of anxiety, reluctant to take any medication in regards to anxiety. Patient stated that several years ago she was following a postal carrier in [place] secondary to kidney disease and received IV medication, patient is unsure of diagnosis that was given to her or medication she was administered. ORLY resolved. 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 Echo (07/24/2024) ejection fraction of 60 to 65% diastolic dysfunction grade 1 mild mitral regurg and tricuspid regurg. NO arrythmias noted overnight. Exam Vital Signs Temp Pulse Resp BP Pulse Ox O2 Del Method 97.9 F 85 15 127/89 H 96 Room Air 07/26/24 07:52 07/26/24 08:08 07/26/24 07:52 07/26/24 08:08 07/26/24 07:52 07/26/24 07:52 Narrative Exam General Appearance: Alert & Oriented X3, well-nourished female who is lying in bed in no acute distress HEENT: Skull symmetrical and atraumatic. Conjunctivae pin and moist. Pupils equal, round, reactive to light and accommodation (PERRL). External ear without lesion or discharge. Cardio: Normal Rate and Rhythm with S1 and S2 heart sounds. No murmurs or extra heart sounds auscultated. No bruits on carotid auscultation. No peripheral edema or cyanosis. Lungs: Symmetric with good expansion. Chest and back non-tender. Breath sounds vesicular without crackles, wheezing or rhonchi Abdomen: Non-tender, Non-distended, Normal Reactive Bowel Sounds Neuro: Alert, cooperative, oriented to person, place, and time. Speech clear. CN grossly intact. Upper motor strength 5/5 and Lower motor strength 5/5. Sensation intact. Objective Labs 07/26/24 05:47 07/26/24 05:47 Labs: Laboratory Results - last 24 hr 07/26/24 05:47 WBC 8.3 RBC 3.83 L Hgb 12.1 Hct 34.6 L MCV 90 MCH 31.6 MCHC 35.0 RDW Std Deviation 40.4 Plt Count 277 Neut % (Auto) 47 Lymph % (Auto) 43 [place] % (Auto) 7 Eos % (Auto) 2 Baso % (Auto) 0 Neut # (Auto) 3.9 Lymph # (Auto) 3.6 [place] # (Auto) 0.6 Eos # (Auto) 0.2 Baso # (Auto) 0.0 Immature Gran # (Auto) 0.01 H Absolute Nucleated RBC 0.00 Immature Gran % 0 Nucleated RBC % 0 Sodium 144 Potassium 4.4 D Chloride 109 H Carbon Dioxide 22.9 Anion Gap 12 BUN 11 Creatinine 0.6 Estim Creat Clear Calc 109.9 eGFR > 60 BUN/Creatinine Ratio 18 Glucose 93 Calculated Osmolality 286 Calcium 8.7 Corrected Calcium 8.9 Phosphorus 3.1 Magnesium 1.9 Total Bilirubin 0.4 AST 19 ALT 14 Alkaline Phosphatase 60 Total Protein 6.2 Albumin 3.7 Globulin 2.5 Albumin/Globulin Ratio 1.5 Quality Measures Quality Measures none Assessment & Plan Assessment Current Active Medications: Generic Name Dose Route Start Last Admin Trade Name Freq PRN Reason Stop Dose Admin Acetaminophen 650 mg 07/24/24 23:02 Acetaminophen 325 Mg Tablet PO 08/23/24 23:01 Q6H PRN PAIN OR FEVER > 101 Heparin Sodium (Porcine) 5,000 unit 07/25/24 06:00 07/26/24 05:02 Heparin Sod Inj 5000 Unit/Ml Vial SC 08/08/24 05:59 Not Given Q8HR FARIDEH Lactated Ringer's 1,000 mls @ 75 mls/hr 07/24/24 23:15 07/26/24 02:42 Lactated Ringers IV 07/26/24 23:14 75 mls/hr .[id number] FARIDEH Administration Magnesium Sulfate 2 gm in 50 mls @ 25 mls/hr 07/26/24 10:21 07/26/24 10:32 Magnesium Sulfate Ivpb IV 07/26/24 12:20 25 mls/hr X1 ONE Administration Metoprolol Tartrate 12.5 mg 07/25/24 10:15 07/26/24 08:08 Metoprolol Tartrate 25 Mg Tablet PO 08/24/24 10:14 12.5 mg BID FARIDEH Administration Ondansetron HCl 4 mg 07/24/24 23:02 Ondansetron Inj 2 Mg/Ml Inj 2 Ml IVP 08/23/24 23:01 Q6H PRN NAUSEA OR VOMITING Protocol Pantoprazole Sodium 40 mg 07/25/24 09:00 07/26/24 08:08 Pantoprazole 40 Mg Tablet PO 08/24/24 08:59 40 mg QDAY FARIDEH Administration Plan Patient is a 43-year-old female with a past medical history of hypertension, home medication losartan 25 mg p.o., and past medical history of anxiety per PCP-never started on SSRIs but was given propranolol. Patient was admitted on 07/24/2024 secondary to new onset of SVT. #New onset SVT New onset of SVT. Patient denied illicit drug use or alcohol use. Patient typically stands for long hours for her job. Patient denied any new medication that was started. Home medication of Losartan. TSH within normal limits. Echo (07/24/2024): EF 60-65% with mitral and tricuspid regur Plan: -Metoprolol Tartrate 12.5 mg PO BID -K>4 and Mg >2 -Please note on discharge to have patient follow up with PCP for a cardiology referral for follow up with [facility]. #Hypertension Home medication of Losartan. Plan -Hold home medication of Losartan -Continue Metoprolol 12.5 mg PO BID -Have patient follow up with PCP for any adjustments needed. #ORLY, resolved. Health Maintenance: Disp: Pt is currently admitted to floors for further management of SVT , awaiting echo, cardiology signing off. FEN: Heparin subq Q8HR DVT: on subQ heparin Code: Full Code - The patient's plan was discussed with attending Dr. Lanny Claros MD PGY1 Internal Medicine Attending Provider Attestation/Addendum I have personally seen and examined the patient separately on the above date of service and discussed the plan of care with the resident. I reviewed the resident Dr. Ally Claros consultation progress note and agree with the resident findings and plan in the note above and have also edited the documentation to reflect my findings and plan. A 43 years old female with past medical history of hypertension, Anxiety, palpiations presented to the ED due to chest pain, shortness of breath and palpitations. As per patient she started having palpitations intermittently on and off approximately 3 years ago and her PCP started her on propranolol for symptomatic treatment. The palpitations happens once every month approximately and is not associated with chest pain or pressure or shortness of breath. 2 days ago patient woke up at night due to palpitations chest pain and shortness of breath. She reported her heart was racing but resolved very quick and she fell back asleep. Yesterday she was working at her kitchen when she suddenly developed palpitations associated with chest pain and shortness of breath. She became very weak, they checked her pulse at home and it was in 190s and EMS was called. Family reports that prior to the event patient was working outside and exerting herself a lot. On arrival to the ED her blood pressure 60/50, pulse 208, respirations 22, temperature 97.6 ?F, oxygen saturation 99% on room air. Labs did not show any significant abnormalities. Urinalysis was unremarkable. U tox was negative. Chest x-ray was unremarkable. EKG showed SVT. Patient was given adenosine 6 mg followed by adenosine 12 mg and was converted to sinus rhythm. After the cardioversion and bolus of IVF her BP improved significantly. Assessment and plan: 1. SVT 2. Essential hypertension 3. Mild ORLY 4. Anxiety 5. Patient presented with SVT which she actually did respond to adenosine. Patient and later on did endorse to on and off palpitations for the last 3 years but she never had any kind of palpitations or any kind of tachycardia even when she was younger in her teens or in the 20s. This symptoms only started 3 years ago and she gets intermittent episodes of the same on and off. Patient presents at this time with palpitation or chest pain or shortness of breath as noted in the HPI heart rate was elevated around 180 bpm which required IV adenosine for conversion. EKG reviewed and showed normal sinus rhythm and no evidence of any delta waves or any WPW syndrome. Patient appears to be having SVT secondary to possible dehydration as patient was hypotensive and also patient was working the fluids and did not drink enough water over the last couple of days. Had mild ORLY on presentation. Her heart rate is over 200 and less likely AVNRT and has possible accessory pathway. Will need long-term Holter monitoring and eventually an EP rail car driver for further evaluation with an EP study. Recommend patient to keep yourself adequately hydrated and continue to replace lites when she is dehydrated or exhausted in the face. Patient recommended to start on metoprolol tartrate 12.5 mg twice daily for now and also stop the propranolol completely. Metoprolol started to fail heart rate rhythm changed to metoprolol XL. Can uptitrate the metoprolol XL to 50 mg once daily and actually decrease the losartan to 12.5 mg once daily Echocardiogram ordered to rule out any kind of structural heart disease causing the SVT. Ma potassium greater than 4 magnesium greater than 2.0 at all times. Unfortunately patient does not see doctors and recommend to continue to follow- up with the primary care doctor as well as the rail car driver closely given her presentation. For blood pressure can decrease the losartan to 12.5 mg once daily and start metoprolol XL 25 mg once daily and uptitrate to 50 mg once daily tomorrow. Mild ORLY improved with IV fluids. Management of rest of the medical conditions as per primary team and other consultants. Thank you for the consult and allowing me to participate in the care of the patient. Cardiology will continue to follow. Elmo Ca M.D. Interventional Cardiology
[2024-07-26] MEDS: ACETAMINOPHEN 325 MG TABLET 650 MG PO (11:55)
--- NOTE | 2024-07-26 14:19 | ESDS_ITS ---
<Statement entered by Sandy Avendano MD - 07/28/24 01:55> Patient was seen and examined by me personally. I have reviewed the below documentation by the team resident and agree with its findings with any exceptions as below. Discharge plan was discussed with the attending, Dr. Stovall. Patient determined safe for discharge, discontinue home losartan due to normal BP while hospitalized and started on metoprolol. Patient will follow up with Dr. Ca outpatient for further cardiac workup. Sandy Avendano, PGY-2 Planned Discharge Date 07/26/24 DS: Providers Provider Date of admission: 07/24/24 23:02 Primary care physician: Meek Perez MD Admitting Provider: Js Newberry MD Attending Provider on Admission: Js Newberry MD Consults: 07/24/24 22:08 Consult to Cardiology Stat Comment: SVT Consulting Provider: Elmo Ca Attending Provider on DC: Casie Davenport MD Discharging Provider: Casie Davenport MD DS: Diagnosis Problem List Completed Was Problem List Reviewed/Reconciled?: Yes Hospital Course Hospital Course Hospital course: Ms. Hammonds is a 43-year-old female with past medical history significant for hypertension, history of anxiety disorder and panic attacks as well as recurrent tachycardias presented to [facility] ED on 07/24/24 complaining of palpitations with chest pressures and shortness of breath. In the ED patient is EKG showed SVT. Cardiology was consulted by the primary team who recommended to start patient on metoprolol 12.5 twice daily which helped control patient's heart rate within normal range and patient's antihypertensive losartan was held during hospitalization and remained to have normal blood pressure. Echocardiogram demonstrated normal findings, with no structural abnormalities noted. Patient's palpitations and anxiety have subsided. Patient is recommended to follow-up outpatient with costume shop manager Dr. Ca for further workup. Patient is also encouraged to check blood pressure daily and keep a record to bring it to the costume shop manager to her next appointment and if systolic blood pressure is above 140 then patient may take losartan 25 mg. Patient is notified to hold losartan if the systolic blood pressure is below 140. Patient is hemodynamically stable, saturating on room air, denies any palpitations, tachycardia and blood pressure is within normal limits. Patient is ready to be discharged home to self-care with the following instructions. Patient is also encouraged to promptly return to the ED if her symptoms return or worsen. Discharge Recommendations -Follow up outpatient with your primary care within 1 week -Obtain a referral to cardiology from your primary care and follow up with costume shop manager Dr. Ca within 2 weeks -Your blood pressure medication Losartan have been stop, please check your blood pressure daily if the systolic number is above 140 please take losartan 25mg. Follow up with your primary care for further instructions -If your symptoms return or worsen please return to ED immediately Hospitalization Diagnosis #New onset SVT #History of hypertension Assessment and plan discussed with my senior resident Dr. Avendano & attending physician Dr. Wilman Davenport (PGY-1)- Internal medicine resident Time Spent with Patient Time attestation: Total time spent providing and/or coordinating discharge services: Time spent: Greater than 30 minutes Exam Vital Signs Temp Pulse Resp BP Pulse Ox O2 Del Method 98.1 F 76 20 113/79 98 Room Air 07/26/24 12:07/26/24 12:07/26/24 12:07/26/24 12:07/26/24 12:07/26/24 12:00 Narrative Exam GENERAL: A&Ox3 . middle aged cooperative and relaxe dfemale, Awake, Not in acute distress NEURO: no focal neurological deficits noted HEENT: Atraumatic, Normocephalic. mucous membranes moist. Eyes open, symmetrical, & clear HEART: Normal Heart Sounds LUNGS: Clear to auscultation with no wheezing or crackles. ABDOMEN: soft, non-distended, non-tender, bowel sounds heard, no guarding or rebound tenderness SKIN: No Rash or ecchymoses EXTREMITIES: No edema, tenderness, able to move all 4 extremities, pedal pulses palpated Discharge Plan Plan Patient Disposition: HOME (Self Care) Care Plan Goals: -Follow up outpatient with your primary care within 1 week -Obtain a referral to cardiology from your primary care and follow up with costume shop manager Dr. Ca within 2 weeks -Your blood pressure medication Losartan have been stop, please check your blood pressure daily if the systolic number is above 140 please take losartan 25mg. Follow up with your primary care for further instructions -If your symptoms return or worsen please return to ED immediately Prescriptions/Referrals Prescriptions/Med Rec: New metoprolol tartrate 25 mg tablet 12.5 mg PO BID Qty: 30 3RF Discontinued losartan [Cozaar] 25 mg tablet 25 mg PO QPM propranolol 20 mg tablet 20 mg PO QMORNING Referrals: Elmo Ca MD [Physician] - Meek Perez MD [Primary Care Provider] - Patient/Caregiver Discharge Instructions Discharge Activity: activity as tolerated Print Language: Hungarian Stand Alone Forms: Emilie Award Info., Patient Portal Info Letter Discharge Order Discharge Orders: Discharge (Routine); Ordered 07/26/24 Ordered By: Casie Davenport Quality Discharge Quality Measures none MD Attestestation MD Attestation Face to face evaluation was performed by me. I have personally seen and examined the patient. I discussed the assessment and plan with the entire medicine team. I reviewed available medical records, imaging studies, laboratory results. I agree with the above subjective data, objective findings, assessment and plan except as corrected by me or noted below Supraventricular tachycardia Palpitations due to above Leukocytosis, likely reactive Patient was admitted with palpitations found to have SVT given 2 doses of adenosine admitted cardiology consulted transthoracic echocardiogram done?did not show significant intracardiac valvular or ejection fraction abnormalities. Cardiology is okay with discharge patient to be released on metoprolol tartrate 12.5 mg twice daily and follow-up with cardiology as well as PCP after discharge. - More than > 30 minutes spent on the encounter
== END 2024-07-26 16:08 | disposition home or self-care (01) | DRG 201 ==
LOC: SERX 07-25 00:06 → SERHOLD 07-25 00:21 → S2NX 07-25 08:36
PROVIDERS: Student in an Organized Health Care Education/Training Program; Admitting Provider Student in an Organized Health Care Education/Training Program; Emergency Provider Emergency Medicine; PCP Family Medicine; Visit Provider Student in an Organized Health Care Education/Training Program
DX: I47.10 Supraventricular tachycardia, unspecified (principal); N17.9 Acute kidney failure, unspecified; E86.0 Dehydration; I10 Essential (primary) hypertension; F41.9 Anxiety disorder, unspecified; I08.1 Rheumatic disorders of both mitral and tricuspid valves; Z79.899 Other long term (current) drug therapy; D72.829 Elevated white blood cell count, unspecified; E78.00 Pure hypercholesterolemia, unspecified
CPT/HCPCS: 36415; 71045; 80053; 80061; 80307; 81001; 81025; 82248; 83735; 83880; 84100; 84439; 84443; 84484; 84703; 85025; 85379; 93005; 93306; 96361; 96374; 99291; J0153; J1644; J3475; J7030; J7120; A9270

== ENCOUNTER 2024-08-09 08:57 | Emergency (ER) | payer MEDICAID, SELFPAY ==
[2024-08-09 08:58] VITALS: BMI 29.2
--- NOTE | 2024-08-09 09:03 | EKG_ITS ---
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
[2024-08-09 09:08] VITALS: BP 146/100; BP 155/100; PULSE 103; RESP 18; TEMP 37.1; O2SAT 98
--- NOTE | 2024-08-09 09:13 | XR_ITS ---
Examination: AP chest single view Technique: AP portable semiupright chest single view Date and time: August 09, 2024 at 0921 hrs. Comparison July 24, 2024, 2029 hrs. Indications: Shortness of breath chest pain today. Findings: Normal heart size. Lungs are clear. The osseous structures are intact. Impression: No active disease
[2024-08-09 09:19] VITALS: PULSE 105
--- NOTE | 2024-08-09 09:23 | PC.NURSE ---
PT PRESENTED TO ED WITH DAUGTHER FOR INCREASE HEART RATE. PT STATES A HISTORY OF SVT
[2024-08-09 09:54] LABS: Basophils % (Auto) 0 % (0-2.5); Eosinophils # (Auto) 0.2 Thou/mm3 (0.0-0.5); Eosinophils % (Auto) 2 % (0-10); Hematocrit 36.2 % (36.0-46.0); Hemoglobin 12.5 g/dL (12.0-16.0); Immature Granulocytes % (Auto) 0 % (0-0); Immature Granulocytes Auto 0.02 Thou/mm3 (0.00-0.00); Lymphocytes # (Auto) 1.9 Thou/mm3 (1.0-4.8); Lymphocytes % (Auto) 22 % (10-50); Mean Corpuscular HGB Conc 34.5 g/dl (31.0-37.0); Mean Corpuscular Volume 90 fL (80-100); Monocytes # (Auto) 0.5 Thou/mm3 (0.0-0.8); Monocytes % (Auto) 5 % (0-12); Neutrophils # (Auto) 6.1 Thou/mm3 (1.8-7.7); Neutrophils % (Auto) 70 % (37-80); Nucleated Red Blood Cell % 0 /100 WBC (0); Platelet Count 292 Thou/mm3 (140-440); RDW Standard Deviation 40.8 fL (36.4-46.3); Red Blood Count 4.03 Miln/mm3 (4.00-5.20); White Blood Count 8.7 Thou/mm3 (3.6-11.0)
[2024-08-09] MEDS: LORazepam 2 MG/ML VIAL 0.5 MG IVP (09:56)
--- NOTE | 2024-08-09 09:56 | PD.EDARRY ---
ED Arrhythmia Palp. RME/HPI General Chief Complaint: Arrhythmia/Palpitations Stated Complaint: HOSP 07/24 FOR SVT; HR 113 THIS AM Time Seen by Provider: 08/09/24 08:59 Arrival date/time: 08/09/24 08:57 Limitations: no limitations RME / HPI RME / HPI narrative: 43 year old female with history of hypertension and episode of SVT 2 weeks ago (hospitalized 07/24-07/26/2024) presents to the ED for evaluation of a burning substernal chest pain beginning this morning shortly after eating breakfast. Accompanied by palpitations. Reports during that time checked her HR on her watch and noted to be fluctuating between 130s to 50's. No other associated symptoms reported. Denies consuming any caffeine in the last 2 weeks. Denies cough, shortness of breath, abdominal pain, n/v/d, or urinary symptoms. Patient denies any increased stress although did mention only getting 4-5 hours of sleep last night due to arriving home late and awaking early this morning. Patient mentioned her medications were change during admission from Propanolol to Metropolol 25mg BID. Related Data Previous Rx's ?Medication ?Instructions ?Recorded metoprolol tartrate 25 mg tablet 12.5 mg (1/2 x 25 mg) PO BID #30 07/26/24 tabs Allergies Allergy/AdvReac Type Severity Reaction Status Date / Time No Known Allergies Allergy Verified 08/09/24 09:02 Review of Systems Review of Systems Systems Reviewed: All systems reviewed, normal except as documented Past Medical History Past Medical History NEUROLOGIC: Negative Neurological Disorders CARDIAC: Positive Cardiac Disorders (HX OF SVT), Hypercholesterolemia and Hypertension GENITOURINARY: Negative Renal Disease MUSCULOSKELETAL: Negative Musculoskeletal Disorders OTHER HISTORY: Positive Chicken Pox Family History FAMILY HISTORY: Negative Family Psychiatric Problems, Family Respiratory Disorders, Family Cardiac Disorders, Family Gastrointestinal Problems, Family Cancer, Family Surgery or Family Anesthesia Reaction Surgical History SURGICAL: Negative Cardiac Surgery Social History SMOKING STATUS: Never smoker SECOND HAND EXPOSURE: No ED Exam General Limitations: Present no limitations General appearance: Present alert and in no apparent distress Head Head exam: Present atraumatic, normocephalic and normal inspection Eye Eye exam: Present normal appearance, PERRL and EOMI ENT ENT exam: Present normal exam, normal oropharynx and mucous membranes moist Neck Neck exam: Present normal inspection, full ROM and trachea midline Chest Chest inspection: Present normal inspection and symmetric chest wall rise Respiratory Respiratory exam: Present normal lung sounds bilaterally Cardiovascular Cardiovascular exam: Present regular rate, normal rhythm and normal heart sounds Abdominal Exam Abdominal exam: Present soft and normal bowel sounds Extremities Exam Extremities exam: Present normal inspection and full ROM Back Exam Back exam: Present normal inspection and full ROM Neurological Exam Neurological exam: Present alert, oriented X3 and CN II-XII intact Psychiatric Psychiatric exam: Present normal affect and normal mood Skin Skin exam: Present warm, dry, intact and normal color Course Quality Measures none Orders Category Date Time Status Kindergarten Assistant NOW Care 08/09/24 09:13 Active EKG (ED ONLY) *Do not use* NOW Care 08/09/24 09:03 Completed Insert IV NOW Care 08/09/24 09:18 Active EKG (ED Only) Stat Exams 08/09/24 09:03 Draft XR chest 1V portable Stat Exams 08/09/24 09:13 Taken CBC Stat Lab 08/09/24 09:30 Received Comprehensive Metabolic Panel Stat Lab 08/09/24 09:30 Received HCG,Qualitative Serum Stat Lab 08/09/24 09:30 Received Lipase Stat Lab 08/09/24 09:30 Received Troponin I Stat Lab 08/09/24 09:30 Received LORazepam [Ativan Inj] Med 08/09/24 09:46 Discontinued 0.5 mg IVP X1 ONE Metoprolol Tartrate Inj [Lopressor Inj] Med 08/09/24 09:47 Discontinued 5 mg IVP X1 ONE Vital Signs Vital signs: Vital Signs Temperature 98.7 F 08/09/24 09:08 Pulse Rate 103 H 08/09/24 09:08 Respiratory Rate 18 08/09/24 09:08 Blood Pressure 155/100 H 08/09/24 09:08 Pulse Oximetry (%) 98 08/09/24 09:08 Oxygen Delivery Method Room Air 08/09/24 09:08 Arrhythmia/Palpitations MDM Narrative MDM Narrative:: Merry Rojas am scribing for and in the presence of Dr. Franco. Patient data External records reviewed:: [facility] previous records (I reviewed admission from 07/24-07/26/2024 for SVT ) Clinical information provided by:: patient Social determinants that could affect healthcare access:: none Patient has the following chronic illnesses:: HTN, episode of SVT 2 weeks ago How is presenting disease/condition affected by chronic disease/condition?: exacerbated by Evaluation data The following diagnostics were reviewed and interpreted by me:: lab results, radiology exam(s) and EKG tracing(s) (08/09/2024 @ 09:04 AM. Sinus rhythm, rate 97, no STEMI, CO 169 ms, QRS 81 ms, QT/QTc 331/386 ms. ) Lab and/or radiology exams considered but not ordered:: None Interpretation Summary: CXR my interpretation: No acute process, normal cardiac contours. Medications / Prescriptions Medications or Prescriptions considered but not ordered:: None Medication administrations:: Medication Administration History Discontinued Medications Lorazepam (Lorazepam 2 Mg/Ml Vial) 0.5 mg IVP X1 ONE Stop: 08/09/24 09:47 Metoprolol Tartrate (Metoprolol Tartrate Inj 1 Mg/Ml Amp 5 Ml) 5 mg IVP X1 ONE Stop: 08/09/24 09:48 Consultations Consultation(s) initiated? (list below): No Diagnosis Differential diagnosis arrhythmia/palpitations: palpitations, anxiety, sinus tachycardia, artial fibrillation, artial flutter, supraventricular tachycardia, ventricular tachycardia and WPW Most likely diagnosis given after review of the tests above:: Palpitations Hx of SVT Admission Indicated Admission indicated?: not indicated Admission Request Was there a request for admission?: No Disposition Plan Disposition Plan: Discharge Discharge Attestation Discharge Attestation: The patient and all family members were given an opportunity to ask questions and understood the discharge instructions. Discharge instructions specifically effects, indications for sooner follow up or return to the emergency department, and the expected course of current diagnosis. Patient condition: Stable Discharge Plan Plan Patient Disposition: HOME (Self Care) Prescriptions/Referrals Prescriptions/Med Rec: No Action metoprolol tartrate 25 mg tablet 12.5 mg PO BID Qty: 30 3RF Referrals: No Primary/Family,Physician [Primary Care Provider] - In 1 week Problem List Clinical Impression: Palpitations, Hx of supraventricular tachycardia Patient/Caregiver Discharge Instructions Education Materials: ED Palpitations Additional Instructions: Continue your current medications. Try to decreased stress and rest more, at least 8 hours a night. Follow-up with your power electronics engineer 3 to 5 days for recheck. You can return to the emergency department sooner if symptoms worsen or if you notice any new, concerning issues. Print Language: Tanzanian Stand Alone Forms: Emilie Award Info., Patient Portal Info Letter
[2024-08-09 09:58] VITALS: BP 135/97; PULSE 93
[2024-08-09] MEDS: METOPROLOL TARTRATE INJ 1 MG/ML AMP 5 ML 5 MG IVP (09:58)
[2024-08-09 10:01] LABS: HCG,Qualitative Serum Negative
[2024-08-09 10:18] LABS: Alanine Aminotransferase 8 U/L (10-49); Albumin, Serum 4.2 gm/dL (3.5-5.0); Albumin/Globulin Ratio 1.5 (1.2-2.2); Alkaline Phosphatase 57 U/L (46-116); Anion Gap 10 (7-16); Aspartate Amino Transferase 16 U/L (0-34); BUN/Creatinine Ratio 13 Ratio (12-20); Bilirubin,Total 0.3 mg/dL (0.3-1.2); Blood Urea Nitrogen 9 mg/dL (9-23); Carbon Dioxide 23.7 mMol/L (20.0-31.0); Chloride 106 mMol/L (98-107); Creatinine (Component) 0.7 mg/dL (0.6-1.3); Estimated Creatinine Clearance 95.7 mL/min (>60); Globulin 2.8 gm/dL (2.3-3.5); Glucose 122 mg/dL (74-106); Lipase 32 U/L (12-53); Osmolality,Calculated 279 (275-295); Potassium 3.7 mMol/L (3.4-5.1); Sodium 140 mMol/L (136-145); Troponin I < 0.002 ng/mL (0.0-0.045); eGFR > 60 See Note
[2024-08-09 10:36] VITALS: BP 135/97; PULSE 93; RESP 18; TEMP 37.1; O2SAT 98
== END 2024-08-09 10:34 | disposition home or self-care (01) ==
PROVIDERS: Nurse Practitioner Primary Care; Emergency Provider Family Medicine
DX: R00.2 Palpitations (principal); R06.02 Shortness of breath; R07.9 Chest pain, unspecified; I10 Essential (primary) hypertension
CPT/HCPCS: 36415; 71045; 80053; 83690; 84484; 84703; 85025; 93005; 96374; 96375; 99284; J2060; J3490

== ENCOUNTER → 2024-08-20 | Outpatient (CLI) | payer OTHER, SELFPAY ==
--- NOTE | 2024-08-20 08:30 | XR_ITS ---
Examination: Breast ultrasound, unilateral, left complete Date and time of exam: August 20, 2024 0918 hours INDICATIONS: Palpable lump left breast and tenderness to palpation beginning 6 years ago Technique: Real-time carballo scale ultrasonographic imaging performed left breast including all 4 quadrants as well as nipple retroareolar and axillary region. Findings: 3:00 cyst 7 x 5 mm No solid nodules Dilated ducts retroareolar IMPRESSION: BI-RADS Category 2: Benign findings
--- NOTE | 2024-08-20 09:00 | XR_ITS ---
Examination: Diagnostic digital mammography, bilateral Computer aided detection 3-D breast Tomosynthesis, bilateral Date and time of exam: 08/20/2024 0934 AM INDICATIONS: Patient states left breast lump noticed beginning 4 years ago Compared to mammograms dating to June 30, 2020 Technique: Nonmagnified MLO, CC views of the breasts to been obtained, reconstructed from 3-D Tomosynthesis images. R2 computer aided detection program utilized for evaluation of suspicious masses and/or abnormal calcifications. 3-D Tomosynthesis images obtained. Findings: The breasts are heterogeneously dense, which may obscure small masses No suspicious masses noted on the spot compression views Benign calcifications Impression: BI-RADS Category 2: Benign findings Recommend yearly follow-up mammography.
== END | disposition home or self-care (01) ==
DX: R92.333 Mammographic heterogeneous density, bilateral breasts (principal); R92.1 Mammographic calcification found on diagnostic imaging of breast; N60.02 Solitary cyst of left breast
CPT/HCPCS: 76641; 77062; 77066; G0279

== ENCOUNTER 2024-12-11 10:16 | Emergency (ER) | payer SELFPAY ==
--- NOTE | 2024-12-11 10:22 | EKG_ITS ---
[facility] Test Date: 2024-12-11 Pat Name: COLETTE KILPATRICK Department: Room: - Gender: Female Area Secretary: : 1980 Requested By: Malik Sherwood (LAURA) Order Number: [id number] Reading MD: Malik Sherwood (REIMBURSEMENT MANAGER) Measurements Intervals [place] Rate: 75 P: 47 NH: 167 QRS: 33 QRSD: 81 T: 30 QT: 361 QTc: 404 Interpretive Statements SINUS RHYTHM Compared to ECG 08/09/2024 09:04:58 No significant changes /store/S0/[id number].pdf
[2024-12-11 10:35] VITALS: BP 132/87; PULSE 78; RESP 18; TEMP 37; O2SAT 98; BMI 25.1
--- NOTE | 2024-12-11 10:37 | XR_ITS ---
EXAMINATION: PA lateral chest 2 views TECHNIQUE: Upright PA lateral chest 2 views Date and time: December 11, 2024, 10:54 a.m. INDICATIONS: Tachycardia dizziness weakness nausea beginning 3 days ago FINDINGS: Normal heart size The lungs are clear. The osseous arteries are intact IMPRESSION: No active disease
--- NOTE | 2024-12-11 10:38 | EDRME_ITS ---
Rapid Medical Screening Exam [facility] Arrival date/time: 12/11/24 10:16 44-year-old female with history of rapid heart rate/irregular rhythm currently on metoprolol presents to the emergency department today stating she has had intermittent episodes of tachycardia since yesterday Chief Complaint: Arrhythmia/Palpitations Vital signs: Vital Signs Temperature 98.6 F 12/11/24 10:35 Pulse Rate 78 12/11/24 10:35 Respiratory Rate 18 12/11/24 10:35 Blood Pressure 132/87 H 12/11/24 10:35 Pulse Oximetry (%) 98 12/11/24 10:35 Oxygen Delivery Method Room Air 12/11/24 10:35
[2024-12-11 11:01] LABS: Basophils # (Auto) 0.0 Thou/mm3 (0.0-0.2); Basophils % (Auto) 0 % (0-2.5); Eosinophils # (Auto) 0.1 Thou/mm3 (0.0-0.5); Eosinophils % (Auto) 2 % (0-10); Hematocrit 40.2 % (36.0-46.0); Hemoglobin 14.0 g/dL (12.0-16.0); Immature Granulocytes Auto 0.02 Thou/mm3 (0.00-0.00); Lymphocytes # (Auto) 2.7 Thou/mm3 (1.0-4.8); Lymphocytes % (Auto) 32 % (10-50); Mean Corpuscular HGB Conc 34.8 g/dl (31.0-37.0); Mean Corpuscular Hemoglobin 31.9 pg (25.0-35.0); Mean Corpuscular Volume 92 fL (80-100); Monocytes # (Auto) 0.5 Thou/mm3 (0.0-0.8); Monocytes % (Auto) 6 % (0-12); Neutrophils # (Auto) 5.0 Thou/mm3 (1.8-7.7); Neutrophils % (Auto) 60 % (37-80); Nucleated Red Blood Cell # 0.00 Thou/mm3 (0.00-0.00); Nucleated Red Blood Cell % 0 /100 WBC (0); Platelet Count 284 Thou/mm3 (140-440); RDW Standard Deviation 43.3 fL (36.4-46.3); Red Blood Count 4.39 Miln/mm3 (4.00-5.20); White Blood Count 8.3 Thou/mm3 (3.6-11.0)
[2024-12-11 11:17] LABS: HCG,Qualitative Serum Negative
[2024-12-11 11:19] LABS: Alanine Aminotransferase 23 U/L (10-49); Albumin, Serum 4.8 gm/dL (3.5-5.0); Albumin/Globulin Ratio 1.7 (1.2-2.2); Alkaline Phosphatase 78 U/L (46-116); Anion Gap 11 (7-16); Aspartate Amino Transferase 26 U/L (0-34); BUN/Creatinine Ratio 10 Ratio (12-20); Bilirubin,Total 0.7 mg/dL (0.3-1.2); Blood Urea Nitrogen 8 mg/dL (9-23); Calcium 9.8 mg/dL (8.3-10.6); Calcium (Corrected) 9.8 mg/dL (8.5-10.1); Carbon Dioxide 25.6 mMol/L (20.0-31.0); Chloride 105 mMol/L (98-107); Creatinine (Component) 0.8 mg/dL (0.6-1.3); Estimated Creatinine Clearance 86.4 mL/min (>60); Free T4 (Free Thyroxine) 1.54 ng/dL (0.89-1.76); Globulin 2.9 gm/dL (2.3-3.5); Glucose 97 mg/dL (74-106); Lipase 31 U/L (12-53); Osmolality,Calculated 281 (275-295); Potassium 4.0 mMol/L (3.4-5.1); Sodium 142 mMol/L (136-145); Thyroid Stimulating Hormone 2.58 uIU/mL (0.55-4.78); Total Protein 7.7 gm/dL (5.7-8.2); Troponin I < 0.002 ng/mL (0.0-0.045); eGFR > 60 See Note
[2024-12-11 12:53] VITALS: BP 141/97; PULSE 73; RESP 19; TEMP 36.7; O2SAT 98
[2024-12-11 13:09] VITALS: PULSE 70; PULSE 76
--- NOTE | 2024-12-11 13:15 | PD.EDRME ---
Rapid Medical Screening Exam [facility] Arrival date/time: 12/11/24 10:16 12/11/24 10:16 44-year-old female with history of rapid heart rate/irregular rhythm currently on metoprolol presents to the emergency department today stating she has had intermittent episodes of tachycardia since yesterday Chief Complaint: Arrhythmia/Palpitations Time Seen by Provider: 12/11/24 11:52 Vital signs: Vital Signs Temperature 98.6 F 12/11/24 10:35 Pulse Rate 78 12/11/24 10:35 Respiratory Rate 18 12/11/24 10:35 Blood Pressure 132/87 H 12/11/24 10:35 Pulse Oximetry (%) 98 12/11/24 10:35 Oxygen Delivery Method Room Air 12/11/24 10:35 RME Narrative: 12/11/24 10:16 44-year-old female with history of rapid heart rate/irregular rhythm currently on metoprolol presents to the emergency department today stating she has had intermittent episodes of tachycardia since yesterday
--- NOTE | 2024-12-11 13:27 | PD.EDADULT ---
ED General RME/HPI General Chief complaint: Arrhythmia/Palpitations Stated complaint: Heart racing since yesterday Time Seen by Provider: 12/11/24 11:52 Arrival date/time: 12/11/24 10:16 CC: Intermittent episodes of tachycardia over the past several days. HPI patient denies fever chills chest pain shortness of breath however patient started 8 days ago on immunosuppression for her rheumatoid arthritis who side effect is palpitations tachycardia and irregular heart rhythm. Patient is also placed on MetroGel by this provider in [place] to help control the rhythm. Patient has no other complaints RME / HPI RME / HPI narrative: 12/11/24 10:16 44-year-old female with history of rapid heart rate/irregular rhythm currently on metoprolol presents to the emergency department today stating she has had intermittent episodes of tachycardia since yesterday Related Data Previous Rx's ?Medication ?Instructions ?Recorded metoprolol tartrate 25 mg tablet 12.5 mg (1/2 x 25 mg) PO BID #30 07/26/24 tabs Allergies Allergy/AdvReac Type Severity Reaction Status Date / Time No Known Allergies Allergy Verified 12/11/24 10:20 Review of Systems Review of Systems Narrative Review of Systems: GEN: No fever, no chills, no weight loss EYES: No discharge, no visual changes, no pain HEENT: No ear pain, no congestion, no sore throat PULM: No shortness of breath, no cough, no congestion CV: No chest pain, no dyspnea on exertion, + palpitations GI: No nausea, no vomiting, no diarrhea, no pain, no constipation : No frequency, no urgency, no dysuria MUSC/SKEL: No joint pain, no back pain SKIN: No rash PSYCH: No hallucinations, no depression HEME/LYMPH: No easy bleeding or bruising tendencies NEURO: No weakness, no headache Past Medical History Past Medical History NEUROLOGIC: Negative Neurological Disorders CARDIAC: Positive Cardiac Disorders (valve leak), Hypercholesterolemia and Hypertension; Negative Congestive Heart Failure RESPIRATORY: Negative Chronic Obstructive Pulmonary Disease (COPD) GASTROINTESTINAL: Negative Gastrointestinal Disorders, Hepatitis or Colorectal Cancer GENITOURINARY: Negative Renal Disease REPRODUCTIVE: Negative Breast Cancer or Pelvic Inflammatory Disease MUSCULOSKELETAL: Negative Musculoskeletal Disorders or Bone Cancer ENDOCRINE: Negative Diabetes Mellitus Type 1 or Diabetes Mellitus Type 2 HEMATOLOGIC: Negative Blood Disorders, Anemia, Leukemia, Hemophilia, Thalassemia, Sickle Cell Disease or Clotting Problems OTHER HISTORY: Positive Chicken Pox; Negative Hospitalization, Autoimmune Disease, Down Syndrome, Developmental Delay, Shingles, Falls, Blood Transfusions, Blood Transfusion Reaction, Anesthesia Reactions, Organ Transplant, Chemotherapy, Radiation Therapy, Hyperbaric Therapy, MRSA, VRSA, Vancomycin-Resistant Enterococci, Human Immunodeficiency Virus (HIV), Measles, Mumps, Rubella (Kinyarwanda Measles), Pertussis, Clostridium Difficile, Cancer, Breast Cancer, Cervical Cancer, Colorectal Cancer, Lung Cancer or Ovarian Cancer Family History FAMILY HISTORY: Negative Family Psychiatric Problems, Family Respiratory Disorders, Family Cardiac Disorders, Family Gastrointestinal Problems, Family Cancer, Family Surgery or Family Anesthesia Reaction Surgical History SURGICAL: Negative Cardiac Surgery, Endocrine Surgery, Thyroidectomy, Ear Surgery, Abdominal Surgery, Nephrectomy, Joint Replacement, Neurologic Surgery, Brain Shunt, Lumpectomy, Hysterectomy, Tubal Ligation, Section or Organ Transplant Social History SMOKING STATUS: Never smoker SECOND HAND EXPOSURE: No ED Exam Narrative Physical exam: [General: Obese not in any acute distress Head normocephalic HEENT: Within acceptable limits Neck is supple nontender Chest equal chest rise nontender to palpation Respiratory: Clear to auscultation no wheezes crackles or rubs CV: Rate rhythm is regular no murmurs rubs or clicks Abdomen is soft nontender no masses positive bowel sounds all 4 quadrants Back: No CVA tenderness no spinous process tenderness from cervical spine thoracic and lumbar spine Skin: Intact no petechiae rash induration ulceration or crepitus Extremities: Moving all extremity against resistance cap refill less than 2 seconds neurosensory intact Neuro: Awake alert oriented x3 Glascow coma 15 no focal deficits] Course Course Course Narrative: Patient symptoms described are closely matched to the symptoms or adverse symptoms that are described for the medication. Patient advised to promptly call the doctor that is prescribing this to either adjust the metoprolol dosage to help counter the tachycardia symptoms of the medication or potentially switch to a different medication for rheumatoid arthritis. Patient remains afebrile nontoxic-appearing. mycophenolate mofetil Quality Measures none Orders Category Date Time Status Can Filling And Closing Machine Tender NOW Care 12/11/24 10:37 Completed EKG (ED ONLY) *Do not use* NOW Care 12/11/24 10:23 Completed EKG (ED Only) Stat Exams 12/11/24 10:22 Draft XR chest 2V Stat Exams 12/11/24 10:37 Completed CBC Stat Lab 12/11/24 10:51 Completed Comprehensive Metabolic Panel Stat Lab 12/11/24 10:51 Completed Free T4 (Free Thyroxine) Stat Lab 12/11/24 10:51 Completed HCG,Qualitative Serum Stat Lab 12/11/24 10:51 Completed Lipase Stat Lab 12/11/24 10:51 Completed TSH [Thyroid Stimulating Hormone] Stat Lab 12/11/24 10:51 Completed Troponin I Stat Lab 12/11/24 10:51 Completed Vital Signs Vital signs: Vital Signs Temperature 98.6 F 12/11/24 10:35 Pulse Rate 78 12/11/24 10:35 Respiratory Rate 18 12/11/24 10:35 Blood Pressure 132/87 H 12/11/24 10:35 Pulse Oximetry (%) 98 12/11/24 10:35 Oxygen Delivery Method Room Air 12/11/24 10:35 Discharge Plan Plan Patient Disposition: HOME (Self Care) Patient condition on transfer: Stable Prescriptions/Referrals Prescriptions/Med Rec: No Action metoprolol tartrate 25 mg tablet 12.5 mg PO BID Qty: 30 3RF Referrals: Meek Perez MD [Primary Care Provider, Family Practice] - In 1 week Problem List Clinical Impression: Adverse drug reaction, Tachycardia Patient/Caregiver Discharge Instructions Education Materials: Understanding Tachycardia, ED Drug Reaction, Other Additional Instructions: Follow-up with your doctor promptly for discussions regarding the tachycardia I suspect it is related to the mycophenolate Print Language: Serbian Stand Alone Forms: Emilie Award Info., Work/School Release, Patient Portal Info Letter PA/[employer] MACHINE SETTER Supervising Physician PA/[employer] MACHINE SETTER Supervising Physician: Chicho Sheth ENP [facility] Clinical Information Provided by: patient Medical Records reviewed [facility] Meds/Rx considered, not ordered None Labs/Rad/Tests considered, not ordered None Chronic Illness/Social Conditions Explain: Rheumatoid arthritis EKG Interpretation EKG #1: EKG Interpretation: EKG performed at 1044 shows a ventricular rate 75 [place] interval 167 QRS of 8 1 QTc of 389 this is a sinus tachycardia. Labs Labs: interpreted by az Lab(s) Interpretation(s): CBC shows no acute leukocytosis anemia thrombocytopenia CMP shows no significant electrolyte imbalances renal impairment transaminitis or T. bili elevation Lipase at 31 TSH of 2.58 Free T4 at 1.54 Urine Prag is negative Troponin is negative Imaging Imaging interpretation: interpreted by me Imaging Interpretation(s): Chest x-ray is unremarkable Diagnosis Differential Diagnosis ED Complaint MDM: ACS CA pneumonia
== END 2024-12-11 13:35 | disposition home or self-care (01) ==
PROVIDERS: Nurse Practitioner Primary Care; Emergency Provider Family Medicine; PCP Family Medicine
DX: T50.905A Adverse effect of unspecified drugs, medicaments and biological substances, initial encounter (principal); R00.0 Tachycardia, unspecified
CPT/HCPCS: 36415; 71046; 80053; 83690; 84439; 84443; 84484; 84703; 85025; 93005; 99283